=== PATIENT | female | born 1945 | race Caucasian/White ===

== ENCOUNTER 2017-11-19 09:05 | Day surgery (SDC) | payer MEDICARE, OTHER ==
[~2017-11-19] VITALS: Ht 160 cm; Wt 131.1 kg
[~2017-11-19 09:05] MED LIST: ATEN25 PO; CODACE30 PO; DULO30 PO; ESOM20 PO; LEVSOD137 PO; LORA1 PO; MAXIDE; RXLORA1 PO; TRIHYD5075 PO; VERA120ERB PO
[2017-11-19] MEDS ORDERED: SOMA350 MG (09:16)
[2017-11-19] MEDS ORDERED: DULO30 (09:16)
[2017-11-19] MEDS ORDERED: LEVA.63IS (09:17)
[2017-11-19] MEDS ORDERED: ESOM20 (09:17)
== END 2017-11-19 14:00 | disposition home or self-care (01) ==
LOC: ORSCSDS 09:05
PROVIDERS: Orthopaedic Surgery
PROC: 0LQ20ZZ Repair Left Shoulder Tendon, Open Approach (ICD-10-PCS; principal; 2017-11-19 10:30)
PROC: 0RJK4ZZ Inspection of Left Shoulder Joint, Percutaneous Endoscopic Approach (ICD-10-PCS; principal; 2017-11-19 10:30)
DX: M75.122 Complete rotator cuff tear or rupture of left shoulder, not specified as traumatic (principal); M75.42 Impingement syndrome of left shoulder; D68.0 Von Willebrand disease; I10 Essential (primary) hypertension; G47.33 Obstructive sleep apnea (adult) (pediatric); E03.9 Hypothyroidism, unspecified; M79.7 Fibromyalgia; E66.01 Morbid (severe) obesity due to excess calories; Z68.43 Body mass index [BMI] 50.0-59.9, adult; Z79.899 Other long term (current) drug therapy
CPT/HCPCS: J0171; J1100; J1885; J2250; J2370; J2405; J2710; J3010; J3370

== ENCOUNTER → 2018-12-10 | Outpatient (CLI) | payer MEDICARE, OTHER ==
[~2018-12-10] MED LIST changes: +DULO30; +ESOM20; +LEVA.63IS; +SOMA350 MG
[2018-12-11 11:47] LABS: Candida species (DNA Probe) Negative (NEGATIVE); G. vaginalis (DNA Probe) Negative (NEGATIVE); T. vaginalis (DNA Probe) Negative (NEGATIVE)
== END | disposition home or self-care (01) ==
LOC: LAB 15:09 → LAB SHORT 15:09
PROVIDERS: Obstetrics & Gynecology
DX: N76.0 Acute vaginitis (principal)
CPT/HCPCS: 87480; 87510; 87660

== ENCOUNTER 2019-01-01 22:26 | Emergency (ER) | payer MEDICARE, OTHER ==
[~2019-01-01] VITALS: Ht 160 cm; Wt 131.5 kg
[2019-01-01 23:14] LABS: BASOPHILS ABSOLUTE AUTO 0.04 K/mm3 (0.00-0.23); BASOPHILS PERCENT AUTO 0 % (0-2); EOSINOPHILS ABSOLUTE AUTO 0.22 K/mm3 (0.00-0.68); EOSINOPHILS PERCENT AUTO 2 % (0-6); Hematocrit 39.7 % (33.0-51.0); Hemoglobin 12.6 g/dL (11.5-16.0); IMMATURE GRAN ABSOLUTE AUTO 0.05 K/mm3 (0.00-0.10); IMMATURE GRAN PERCENT AUTO 1 % (0-1); LYMPHOCYTES ABSOLUTE AUTO 2.99 K/mm3 (0.84-5.20); LYMPHOCYTES PERCENT AUTO 30 % (21-46); MONOCYTES ABSOLUTE AUTO 0.91 K/mm3 (0.16-1.47); MONOCYTES PERCENT AUTO 9 % (4-13); Mean Corpuscular HGB 27.6 pg (26.0-34.0); Mean Corpuscular HGB Conc 31.7 g/dL (31.5-36.5); Mean Corpuscular Volume 87 fL (80-100); NEUTROPHILS ABSOLUTE AUTO 5.86 K/mm3 (1.96-9.15); NEUTROPHILS PERCENT AUTO 58 % (41-73); Platelet Count 96 K/mm3 (150-400); RDW Coefficient Variation 15.3 % (11.7-14.2); RDW Standard Deviation 48.8 fL (35.1-46.3); Red Blood Cell Count 4.56 M/mm3 (3.80-5.20); White Blood Cell Count 10.07 K/mm3 (4.00-11.30)
[2019-01-01 23:17] LABS: Mean Platelet Volume 13.2 fL (9.1-12.4)
[2019-01-01 23:34] LABS: Alanine Aminotransfer (ALT/SGP 28 U/L (12-78); Albumin, Blood 3.6 g/dL (3.4-5.0); Albumin/Globulin Ratio 0.9 (0.8-1.8); Alk Phos 91 U/L (50-136); Anion Gap 8 mmol/L (6-16); Aspartate Aminotrans (AST/SGOT 14 U/L (12-37); Bilirubin, Total 0.4 mg/dL (0.1-1.0); Blood Urea Nitrogen 16 mg/dL (8-24); Bun/Creatinine Ratio 25.8 (12.0-20.0); CO2, Blood 26 mmol/L (21-32); Calcium, Blood 8.9 mg/dL (8.5-10.1); Chloride, Blood 105 mmol/L (98-108); Creatinine, Blood 0.62 mg/dL (0.40-1.00); Globulin, Blood 4.1 g/dL (2.2-4.0); Glomerular Filtration Rate >60 (60-); Glucose, Blood 110 mg/dL (70-99); Potassium, Blood 3.5 mmol/L (3.5-5.5); Sodium, Blood 139 mmol/L (136-145); Total Protein, Blood 7.7 g/dL (6.4-8.2); Troponin I <0.015 ng/mL (0.000-0.040)
== END 2019-01-02 07:11 | disposition home or self-care (01) ==
LOC: ER 22:26
PROVIDERS: Emergency Medicine
DX: I10 Essential (primary) hypertension (principal); E03.9 Hypothyroidism, unspecified; F41.9 Anxiety disorder, unspecified; D68.0 Von Willebrand disease; M79.7 Fibromyalgia; Z87.891 Personal history of nicotine dependence; Z88.5 Allergy status to narcotic agent; Z88.6 Allergy status to analgesic agent; Z88.8 Allergy status to other drugs, medicaments and biological substances; Z91.010 Allergy to peanuts; Z91.013 Allergy to seafood; Z79.899 Other long term (current) drug therapy
CPT/HCPCS: 71046; 80053; 83690; 84484; 85025; 93005; 93010; 99285-25

== ENCOUNTER 2020-05-04 23:05 | Emergency (ER) | payer MEDICARE, OTHER ==
[~2020-05-04] VITALS: Ht 160 cm; Wt 131.5 kg
[~2020-05-04 23:05] MED LIST changes: +Dyazide 37.5/251 EA PO; -TRIHYD5075 PO
[2020-05-04] MEDS ORDERED: MECL12.5 (23:25)
[2020-05-04] MEDS ORDERED: TRAM50 (23:26)
[2020-05-05 00:05] LABS: BASOPHILS ABSOLUTE AUTO 0.03 K/mm3 (0.00-0.23); BASOPHILS PERCENT AUTO 0 % (0-2); EOSINOPHILS ABSOLUTE AUTO 0.14 K/mm3 (0.00-0.68); EOSINOPHILS PERCENT AUTO 1 % (0-6); Hematocrit 40.4 % (33.0-51.0); Hemoglobin 12.6 g/dL (11.5-16.0); IMMATURE GRAN ABSOLUTE AUTO 0.09 K/mm3 (0.00-0.10); IMMATURE GRAN PERCENT AUTO 1 % (0-1); LYMPHOCYTES ABSOLUTE AUTO 1.53 K/mm3 (0.84-5.20); LYMPHOCYTES PERCENT AUTO 16 % (21-46); MONOCYTES ABSOLUTE AUTO 0.55 K/mm3 (0.16-1.47); MONOCYTES PERCENT AUTO 6 % (4-13); Mean Corpuscular HGB 26.9 pg (26.0-34.0); Mean Corpuscular HGB Conc 31.2 g/dL (31.5-36.5); Mean Corpuscular Volume 86 fL (80-100); NEUTROPHILS ABSOLUTE AUTO 7.52 K/mm3 (1.96-9.15); NEUTROPHILS PERCENT AUTO 76 % (41-73); Platelet Count 91 K/mm3 (150-400); RDW Coefficient Variation 15.1 % (11.7-14.2); RDW Standard Deviation 47.9 fL (35.1-46.3); Red Blood Cell Count 4.69 M/mm3 (3.80-5.20); White Blood Cell Count 9.86 K/mm3 (4.00-11.30)
[2020-05-05 00:07] LABS: Mean Platelet Volume 13.2 fL (9.1-12.4)
[2020-05-05 00:23] LABS: Alanine Aminotransfer (ALT/SGP 27 U/L (12-78); Albumin, Blood 3.6 g/dL (3.4-5.0); Alk Phos 85 U/L (50-136); Anion Gap 7 mmol/L (6-16); Aspartate Aminotrans (AST/SGOT 15 U/L (12-37); Bilirubin, Total 0.4 mg/dL (0.1-1.0); Blood Urea Nitrogen 28 mg/dL (8-24); Bun/Creatinine Ratio 40.1 (12.0-20.0); CO2, Blood 27 mmol/L (21-32); Calcium, Blood 9.1 mg/dL (8.5-10.1); Chloride, Blood 106 mmol/L (98-108); Globulin, Blood 3.7 g/dL (2.2-4.0); Glomerular Filtration Rate >60 (60-); Glucose, Blood 136 mg/dL (70-99); Potassium, Blood 3.3 mmol/L (3.5-5.5); Sodium, Blood 140 mmol/L (136-145); Total Protein, Blood 7.3 g/dL (6.4-8.2); Troponin I <0.015 ng/mL (0.000-0.040)
[2020-05-05] MEDS ORDERED: ATOR80 PO (00:53)
[2020-05-05] MEDS ORDERED: PAROEX473 ML MM (00:54)
[2020-05-05] MEDS ORDERED: Catapres-Tts 11 EACH TOP (00:55)
[2020-05-05] MEDS ORDERED: FLUO10 PO (00:56)
[2020-05-05] MEDS ORDERED: Voltaren100 GM TOP (00:56)
[2020-05-05] MEDS ORDERED: FOLI1 PO (00:56)
[2020-05-05] MEDS ORDERED: HYDPAM50 PO (00:57)
[2020-05-05] MEDS ORDERED: GABA400 PO (00:57)
[2020-05-05] MEDS ORDERED: LIDO700A20 TOP (00:58)
[2020-05-05] MEDS ORDERED: Xylocaine5 M1 EXT (01:01)
[2020-05-05] MEDS ORDERED: MESALAMINE800 MG PO (01:04)
[2020-05-05] MEDS ORDERED: PYRI100 PO (01:05)
[2020-05-05] MEDS ORDERED: CENTRUM SILVER1 EAC2 PO (01:05)
[2020-05-05] MEDS ORDERED: Seroquel Xr50 MG PO (01:05)
[2020-05-05] MEDS ORDERED: TERB250 PO (01:06)
[2020-05-05] MEDS ORDERED: Vitamin B-150 MG PO (01:06)
[2020-05-05] MEDS ORDERED: SYNTHROID137 MCG (01:14)
[2020-05-05] MEDS ORDERED: TRIA50 PO (01:15)
[2020-05-05] MEDS ORDERED: Nexium40 MG PO (01:16)
[2020-05-05] MEDS ORDERED: VERA120ERB PO (01:16)
[2020-05-05] MEDS ORDERED: ATEN25 PO (01:16)
[2020-05-05] MEDS ORDERED: Ativan1 MG PO (01:17)
== END 2020-05-05 02:16 | disposition home or self-care (01) ==
LOC: ER 23:05
PROVIDERS: Emergency Medicine
DX: I10 Essential (primary) hypertension (principal); Z88.6 Allergy status to analgesic agent; Z91.013 Allergy to seafood; Z91.018 Allergy to other foods; Z88.8 Allergy status to other drugs, medicaments and biological substances; Z91.09 Other allergy status, other than to drugs and biological substances; Z79.899 Other long term (current) drug therapy; E03.9 Hypothyroidism, unspecified; F41.9 Anxiety disorder, unspecified; Z87.891 Personal history of nicotine dependence
CPT/HCPCS: 36415; 71045; 80053; 84484; 85025; 93005; 93010; 96374; 96375; 96376; 99284-25; J2405

== ENCOUNTER → 2021-06-06 | Outpatient (CLI) | payer MEDICARE ==
[~2021-06-06] MED LIST changes: +ATOR80 PO; +Ativan1 MG PO; +CENTRUM SILVER1 EAC2 PO; +Catapres-Tts 11 EACH TOP; +FLUO10 PO; +FOLI1 PO; +GABA400 PO; +HYDPAM50 PO; +LIDO700A20 TOP; +MECL12.5; +MESALAMINE800 MG PO; +Nexium40 MG PO; +PAROEX473 ML MM; +PYRI100 PO; +SYNTHROID137 MCG; +Seroquel Xr50 MG PO; +TERB250 PO; +TRAM50; +TRIA50 PO; +Vitamin B-150 MG PO; +Voltaren100 GM TOP; +Xylocaine5 M1 EXT
[2021-06-06 07:54] LABS: Source, Urine Clean Catch
[2021-06-06 10:38] LABS: Appearance, Urine Clear (Clear); Bilirubin, Urine Neg (Neg); Blood, Urine Neg (Neg); Color, Urine Yellow (P-Yellow); Glucose Qualitative, Urine Neg (Neg); Ketones, Urine Neg (Neg); Leukocyte Esterase, Urine Neg (Neg); Nitrite, Urine Neg (Neg); Protein, Urine Neg (Neg); Urobilinogen, Urine NORM (Normal)
== END | disposition home or self-care (01) ==
LOC: LAB 07:53 → LAB SHORT 07:53 → LAB FUT 06-03 08:55
PROVIDERS: Internal Medicine
DX: R82.90 Unspecified abnormal findings in urine (principal)
CPT/HCPCS: 81003

== ENCOUNTER → 2022-02-23 | Outpatient (CLI) | payer MEDICARE ==
[2022-02-23 09:42] LABS: BASOPHILS ABSOLUTE AUTO 0.05 K/mm3 (0.00-0.23); BASOPHILS PERCENT AUTO 1 % (0-2); EOSINOPHILS ABSOLUTE AUTO 0.22 K/mm3 (0.00-0.68); EOSINOPHILS PERCENT AUTO 3 % (0-6); Hematocrit 40.4 % (33.0-51.0); Hemoglobin 13.4 g/dL (11.5-16.0); IMMATURE GRAN ABSOLUTE AUTO 0.08 K/mm3 (0.00-0.10); IMMATURE GRAN PERCENT AUTO 1 % (0-1); LYMPHOCYTES ABSOLUTE AUTO 1.81 K/mm3 (0.84-5.20); LYMPHOCYTES PERCENT AUTO 22 % (21-46); MONOCYTES ABSOLUTE AUTO 0.59 K/mm3 (0.16-1.47); MONOCYTES PERCENT AUTO 7 % (4-13); Mean Corpuscular HGB 28.3 pg (26.0-34.0); Mean Corpuscular HGB Conc 33.2 g/dL (31.5-36.5); Mean Corpuscular Volume 85 fL (80-100); Mean Platelet Volume 12.8 fL (9.1-12.4); NEUTROPHILS ABSOLUTE AUTO 5.68 K/mm3 (1.96-9.15); NEUTROPHILS PERCENT AUTO 67 % (41-73); Platelet Count 112 K/mm3 (150-400); RDW Coefficient Variation 15.1 % (11.7-14.2); RDW Standard Deviation 46.9 fL (35.1-46.3); Red Blood Cell Count 4.74 M/mm3 (3.80-5.20); White Blood Cell Count 8.43 K/mm3 (4.00-11.30)
[2022-02-23 09:48] LABS: Albumin, Blood 3.8 g/dL (3.4-5.0); Bilirubin, Total 0.4 mg/dL (0.1-1.0); Calcium, Blood 9.7 mg/dL (8.5-10.1); Creatinine, Blood 0.82 mg/dL (0.40-1.00); Globulin, Blood 3.9 g/dL (2.2-4.0); Potassium, Blood 3.6 mmol/L (3.5-5.5); Total Protein, Blood 7.7 g/dL (6.4-8.2)
== END | disposition home or self-care (01) ==
LOC: LAB 09:32 → LAB SHORT 09:32
PROVIDERS: General Practice
DX: R10.32 Left lower quadrant pain (principal)
CPT/HCPCS: 80053; 85025

== ENCOUNTER → 2023-01-05 | Outpatient (CLI) | payer MEDICARE ==
[2023-01-10 14:09] LABS: Stool Occult Blood Guaiac 1 Neg (Neg)
[2023-01-10 14:10] LABS: Stool Occult Blood Guaiac 2 Neg (Neg); Stool Occult Blood Guaiac 3 Neg (Neg)
== END | disposition home or self-care (01) ==
LOC: LAB SHORT 11:30 → LAB 11:30
PROVIDERS: Internal Medicine
DX: D64.9 Anemia, unspecified (principal)
CPT/HCPCS: 82270

== ENCOUNTER 2023-02-20 12:37 | Inpatient (IN) | payer MEDICARE ==
[~2023-02-20] VITALS: Ht 162.6 cm; Wt 139.5 kg
[~2023-02-20 12:37] MED LIST changes: -SYNTHROID137 MCG; +SYNTHROID137 MCG PO
[2023-02-20 13:51] LABS: Hematocrit 31.2 % (33.0-51.0); Hemoglobin 9.9 g/dL (11.5-16.0); IMMATURE GRAN ABSOLUTE AUTO 0.65 K/mm3 (0.00-0.10); IMMATURE GRAN PERCENT AUTO 6 % (0-1); Mean Corpuscular HGB 27.8 pg (26.0-34.0); Mean Corpuscular HGB Conc 31.7 g/dL (31.5-36.5); Mean Corpuscular Volume 88 fL (80-100); Platelet Count 65 K/mm3 (150-400); RDW Coefficient Variation 20.8 % (11.7-14.2); RDW Standard Deviation 65.3 fL (35.1-46.3); Red Blood Cell Count 3.56 M/mm3 (3.80-5.20); White Blood Cell Count 11.11 K/mm3 (4.00-11.30)
[2023-02-20 13:55] LABS: Albumin, Blood 3.7 g/dL (3.4-5.0); Bilirubin, Total 0.4 mg/dL (0.1-1.0); Bun/Creatinine Ratio 28.6 (12.0-20.0); Calcium, Blood 9.8 mg/dL (8.5-10.1); Creatinine, Blood 0.7 mg/dL (0.40-1.00); Globulin, Blood 3.6 g/dL (2.2-4.0); Potassium, Blood 4.1 mmol/L (3.5-5.5); Total Protein, Blood 7.3 g/dL (6.4-8.2)
[2023-02-20 14:16] LABS: BAND PERCENT MAN 4 % (0-8); BASOPHILS PERCENT MAN 1 % (0-2); EOSINOPHILS PERCENT MAN 7 % (0-6); LYMPHOCYTES PERCENT MAN 22 % (21-46); MONOCYTES PERCENT MAN 6 % (4-13); SEG NEUTROPHILS PERCENT MAN 60 % (41-73); TOTAL CELLS COUNTED 100
[2023-02-20 19:03] LABS: International Normalized Ratio 0.98; Prothrombin Time Results 10.3 Sec (9.7-11.5)
[2023-02-20] MEDS ORDERED: ESCITALOPRAM OXA5 MG PO (19:24)
[2023-02-20] MEDS ORDERED: GABA300 PO (19:25)
[2023-02-20] MEDS ORDERED: DYAZIDE 37.5-21 EACH PO (19:25)
[2023-02-20] MEDS ORDERED: ALBU90OI INH (19:25)
[2023-02-20] MEDS ORDERED: BUDESONIDE-FO10.2 G3 INH (19:26)
[2023-02-20 20:34] VITALS: BP 167/81
--- NOTE | 2023-02-21 01:17 | NUR ---
ADMIT NOTE/SHIFT SUMMARY CALLED ER FOR REPORT AT 1937, GIVEN REPORT FROM SAHR ABDUL. PT BROUGHT TO RM 335 AROUND 2009. PT ASSISTED INTO BED. PT UNABLE TO TOLERATE SLEEPING IN THE BED AT THIS TIME DUE TO NECK AND BACK PAIN. PT GIVEN TYLENOL. PT STS THAT SHE IS COLD AND ANXIOUS. SPOKE TO DR DUBON AND WAS ABLE TO GET LORAZEPAM ORDERED FOR HER. PT GIVEN MEDICATION AND HAS BEEN ABLE TO SLEEP OFF AND ON. PT STS THAT SHE FEELS BETTER. PT ON PROTONIX DRIP AT 10 ML/HR. ORIGINAL IV WAS IN AC AND CONTINUALLY SHUT THE IV PUMP OFF. THAT IV REMOVED AND A NEW ONE WAS PLACED IN LOWER R FOREARM.
[2023-02-21 04:00] VITALS: BP 165/68
[2023-02-21 06:41] LABS: Hemoglobin 8.8 g/dL (11.5-16.0); Mean Corpuscular HGB Conc 31.4 g/dL (31.5-36.5); Mean Corpuscular Volume 89 fL (80-100); RDW Coefficient Variation 20.9 % (11.7-14.2); RDW Standard Deviation 67.4 fL (35.1-46.3); Red Blood Cell Count 3.14 M/mm3 (3.80-5.20); White Blood Cell Count 8.58 K/mm3 (4.00-11.30)
[2023-02-21 07:00] LABS: Platelet Count 47 K/mm3 (150-400)
[2023-02-21 07:03] LABS: Albumin, Blood 3.2 g/dL (3.4-5.0); Bilirubin, Total 0.6 mg/dL (0.1-1.0); Calcium, Blood 9.2 mg/dL (8.5-10.1); Creatinine, Blood 0.75 mg/dL (0.40-1.00); Globulin, Blood 3.3 g/dL (2.2-4.0); Potassium, Blood 3.5 mmol/L (3.5-5.5); Total Protein, Blood 6.5 g/dL (6.4-8.2)
[2023-02-21 07:17] LABS: BAND PERCENT MAN 2 % (0-8); BASOPHILS PERCENT MAN 0 % (0-2); EOSINOPHILS ABSOLUTE MAN 0.42 K/mm3 (0.00-0.68); EOSINOPHILS PERCENT MAN 5 % (0-6); LYMPHOCYTES ABSOLUTE MAN 1.37 K/mm3 (0.84-5.20); LYMPHOCYTES PERCENT MAN 16 % (21-46); METAMYELOCYTE ABSOLUTE MAN 0.08 K/mm3 (0.00-0.00); METAMYELOCYTE PERCENT MAN 1 % (0-0); MONOCYTES PERCENT MAN 7 % (4-13); MYELOCYTE ABSOLUTE MAN 0.08 K/mm3 (0.00-0.00); MYELOCYTE PERCENT MAN 1 % (0-0); SEG NEUTROPHILS PERCENT MAN 68 % (41-73); TOTAL CELLS COUNTED 100
[2023-02-21 07:53] VITALS: BP 136/56
[2023-02-21 15:51] VITALS: BP 131/63
[2023-02-21 16:10] LABS: Hematocrit 30.3 % (33.0-51.0); Hemoglobin 9.3 g/dL (11.5-16.0)
--- NOTE | 2023-02-21 18:37 | NUR ---
SUMMARY- PT AAOX4. APPROPRIATE. SBA. PT HAD 2 BM'S TODAY. PER PT, THE FIRST ONE WAS "BLACK-BROWN" AND THE SECOND WAS BROWN. NO OTHER SIGNS/SYMPTOMS OF BLEEDING.
[2023-02-21 19:36] VITALS: BP 154/73
[2023-02-22 02:41] VITALS: BP 129/80
[2023-02-22 06:11] LABS: Hematocrit 30.2 % (33.0-51.0); Hemoglobin 9.4 g/dL (11.5-16.0); Mean Corpuscular HGB 27.9 pg (26.0-34.0); Mean Corpuscular HGB Conc 31.1 g/dL (31.5-36.5); Mean Corpuscular Volume 90 fL (80-100); RDW Coefficient Variation 20.9 % (11.7-14.2); RDW Standard Deviation 68.4 fL (35.1-46.3); Red Blood Cell Count 3.37 M/mm3 (3.80-5.20); White Blood Cell Count 10.39 K/mm3 (4.00-11.30)
[2023-02-22 06:22] LABS: Platelet Count 48 K/mm3 (150-400)
[2023-02-22 06:29] LABS: Bun/Creatinine Ratio 25.1 (12.0-20.0); Calcium, Blood 9.3 mg/dL (8.5-10.1); Creatinine, Blood 0.8 mg/dL (0.40-1.00); Potassium, Blood 3.6 mmol/L (3.5-5.5)
--- NOTE | 2023-02-22 06:36 | NUR ---
SHIFT SUMMARY: A&O X 4, ABLE TO MAKE NEEDS KNOWN. USES CALL LIGHT APPROPRIATELY. NO COMPLAINTS OF CHEST PAIN OR DISCOMFORT. SHE IS PLANNING ON DISCHARGING TODAY. SHE HAS NOT HAD A DARK STOOL SINCE YESTERDAY MORNING. SHE DOES HAVE PLANS TO RECEIVE HER HUMAT-P THERAPY TODAY PRIOR TO DISCHARGING. CALL LIGHT WITHIN REACH.
[2023-02-22 07:45] VITALS: BP 123/56
[2023-02-22 14:50] LABS: Hematocrit 32.6 % (33.0-51.0); Hemoglobin 10.1 g/dL (11.5-16.0)
[2023-02-22 15:34] VITALS: BP 129/72
--- NOTE | 2023-02-22 18:53 | NUR ---
LATE ENTRY 1400 PT DISCHARGED HOME. FAMILY AT BEDSIDE. DISCHARGE INSTRUCTIONS DISCUSSED WITH PT. NO QUESTIONS AT THIS TIME. ALERT AND ORIENTED X4, INDEPENDENT, R/A.
[2023-02-23 00:10] LABS: FACTOR VIII ACTIVITY 130 % (56-140); INTERPRETATION Note (.); VON WILLEBRAND FACTOR (VWF) AG 135 % (50-200); VWF ACTIVITY 51 % (50-200)
== END 2023-02-22 16:19 | disposition home or self-care (01) | DRG 378 ==
LOC: ER 12:37 → MEDS 19:26
PROVIDERS: Family Medicine; Internal Medicine; Physician Assistant; Student in an Organized Health Care Education/Training Program; ADMIT Student in an Organized Health Care Education/Training Program
DX: K92.1 Melena (principal); D62 Acute posthemorrhagic anemia; D68.021 Von Willebrand disease, type 2B; Z68.43 Body mass index [BMI] 50.0-59.9, adult; Z66 Do not resuscitate; I10 Essential (primary) hypertension; E03.9 Hypothyroidism, unspecified; F41.9 Anxiety disorder, unspecified; H83.09 Labyrinthitis, unspecified ear; E11.9 Type 2 diabetes mellitus without complications; E78.5 Hyperlipidemia, unspecified; M85.80 Other specified disorders of bone density and structure, unspecified site; E66.9 Obesity, unspecified; K21.9 Gastro-esophageal reflux disease without esophagitis; M79.7 Fibromyalgia; Z91.013 Allergy to seafood; Z91.010 Allergy to peanuts; Z91.018 Allergy to other foods; Z90.49 Acquired absence of other specified parts of digestive tract; Z90.89 Acquired absence of other organs; Z98.890 Other specified postprocedural states; Z96.612 Presence of left artificial shoulder joint; Z87.891 Personal history of nicotine dependence; Z88.8 Allergy status to other drugs, medicaments and biological substances; Z79.890 Hormone replacement therapy; Z79.899 Other long term (current) drug therapy
CPT/HCPCS: 36415; 80048; 80053; 82272; 85014; 85018; 85025; 85027; 85240; 85245; 85246; 85610; 85730; 86850; 86900; 86901; 94640; 94664; 94760; 94762; 96365; 96366; 99285-25; A9270; C9113; J7187

== ENCOUNTER → 2023-02-28 | Outpatient (CLI) | payer MEDICARE ==
[~2023-02-28] MED LIST changes: +ALBU90OI INH; +BUDESONIDE-FO10.2 G3 INH; +DYAZIDE 37.5-21 EACH PO; +ESCITALOPRAM OXA5 MG PO; +GABA300 PO
[2023-02-28 15:42] LABS: Hematocrit 25.6 % (33.0-51.0); Hemoglobin 7.9 g/dL (11.5-16.0); Mean Corpuscular HGB 28.5 pg (26.0-34.0); Mean Corpuscular HGB Conc 30.9 g/dL (31.5-36.5); Mean Corpuscular Volume 92 fL (80-100); Platelet Count 61 K/mm3 (150-400); RDW Coefficient Variation 20.8 % (11.7-14.2); RDW Standard Deviation 68.8 fL (35.1-46.3); Red Blood Cell Count 2.77 M/mm3 (3.80-5.20); White Blood Cell Count 11.18 K/mm3 (4.00-11.30)
[2023-02-28 16:03] LABS: BASOPHILS PERCENT MAN 0 % (0-2); EOSINOPHILS ABSOLUTE MAN 0.22 K/mm3 (0.00-0.68); EOSINOPHILS PERCENT MAN 2 % (0-6); LYMPHOCYTES ABSOLUTE MAN 2.34 K/mm3 (0.84-5.20); LYMPHOCYTES PERCENT MAN 21 % (21-46); MONOCYTES ABSOLUTE MAN 0.67 K/mm3 (0.16-1.47); MONOCYTES PERCENT MAN 6 % (4-13); MYELOCYTE ABSOLUTE MAN 0.44 K/mm3 (0.00-0.00); MYELOCYTE PERCENT MAN 4 % (0-0); NEUTROPHILS ABSOLUTE MAN 7.49 K/mm3 (1.96-9.15); SEG NEUTROPHILS PERCENT MAN 67 % (41-73); TOTAL CELLS COUNTED 100
== END | disposition home or self-care (01) ==
LOC: LAB SHORT 15:05 → LAB 15:05
PROVIDERS: Nurse Practitioner
DX: D68.00 Von Willebrand disease, unspecified (principal); D69.6 Thrombocytopenia, unspecified
CPT/HCPCS: 85025

== ENCOUNTER 2023-03-02 02:44 | Day surgery (SDC) | payer MEDICARE ==
[2023-03-02 15:38] VITALS: BP 97/47
[2023-03-02 15:56] VITALS: BP 115/59
[2023-03-02 16:56] VITALS: BP 121/50
[2023-03-02 17:10] VITALS: BP 128/55
== END 2023-03-02 17:21 | disposition home or self-care (01) ==
LOC: ATC 02:44
DX: D50.9 Iron deficiency anemia, unspecified (principal); D68.021 Von Willebrand disease, type 2B; I10 Essential (primary) hypertension; E11.9 Type 2 diabetes mellitus without complications; E03.9 Hypothyroidism, unspecified; E78.5 Hyperlipidemia, unspecified; K21.9 Gastro-esophageal reflux disease without esophagitis; Z87.891 Personal history of nicotine dependence; Z88.8 Allergy status to other drugs, medicaments and biological substances; Z79.899 Other long term (current) drug therapy
CPT/HCPCS: 36415; 86850; 86900; 86901; 86922; J7050; P9016

== ENCOUNTER 2023-03-05 16:55 | Inpatient (IN) | payer MEDICARE ==
[2023-03-05] VITALS (11 sets, daily range): BP systolic 109–149; BP diastolic 54–84
[~2023-03-05] VITALS: Ht 160 cm; Wt 138.0 kg
[2023-03-05 17:54] LABS: BASOPHILS ABSOLUTE AUTO 0.11 K/mm3 (0.00-0.23); BASOPHILS PERCENT AUTO 1 % (0-2); EOSINOPHILS ABSOLUTE AUTO 0.46 K/mm3 (0.00-0.68); EOSINOPHILS PERCENT AUTO 2 % (0-6); Hematocrit 18.5 % (33.0-51.0); IMMATURE GRAN ABSOLUTE AUTO 0.93 K/mm3 (0.00-0.10); IMMATURE GRAN PERCENT AUTO 4 % (0-1); LYMPHOCYTES PERCENT AUTO 12 % (21-46); MONOCYTES ABSOLUTE AUTO 1.69 K/mm3 (0.16-1.47); MONOCYTES PERCENT AUTO 8 % (4-13); Mean Corpuscular HGB 29.1 pg (26.0-34.0); Mean Corpuscular HGB Conc 30.8 g/dL (31.5-36.5); Mean Corpuscular Volume 94 fL (80-100); NEUTROPHILS ABSOLUTE AUTO 15.31 K/mm3 (1.96-9.15); NEUTROPHILS PERCENT AUTO 73 % (41-73); NRBC ABSOLUTE 0.09 K/mm3 (0.00-0.02); NRBC Auto 0.4 /100 WBC (0.0-0.2); RDW Coefficient Variation 21.4 % (11.7-14.2); Red Blood Cell Count 1.96 M/mm3 (3.80-5.20)
[2023-03-05 17:57] LABS: Hemoglobin 5.7 g/dL (11.5-16.0)
[2023-03-05 17:58] LABS: Albumin, Blood 3.1 g/dL (3.4-5.0); Albumin/Globulin Ratio 0.9 (0.8-1.8); Bilirubin, Total 0.2 mg/dL (0.1-1.0); Bun/Creatinine Ratio 40.5 (12.0-20.0); Calcium, Blood 9.3 mg/dL (8.5-10.1); Creatinine, Blood 0.74 mg/dL (0.40-1.00); Globulin, Blood 3.3 g/dL (2.2-4.0); Potassium, Blood 3.3 mmol/L (3.5-5.5); Total Protein, Blood 6.4 g/dL (6.4-8.2)
[2023-03-05 18:24] LABS: Platelet Count 35 K/mm3 (150-400)
[2023-03-05 18:44] LABS: International Normalized Ratio 0.98; Prothrombin Time Results 10.3 Sec (9.7-11.5)
[2023-03-05 23:06] LABS: Source, Urine Clean Catch
[2023-03-05 23:13] LABS: Appearance, Urine Clear (Clear); Bilirubin, Urine Neg (Neg); Blood, Urine Neg (Neg); Color, Urine Yellow (P-Yellow); Glucose Qualitative, Urine Neg (Neg); Ketones, Urine Neg (Neg); Leukocyte Esterase, Urine Neg (Neg); Nitrite, Urine Neg (Neg); Protein, Urine Neg (Neg); Urobilinogen, Urine NORM (Normal)
[2023-03-05] MEDS ORDERED: GABA300 PO (23:19)
[2023-03-05] MEDS ORDERED: MECL12.5 PO (23:25)
[2023-03-06] VITALS (16 sets, daily range): BP systolic 132–165; BP diastolic 53–79
--- NOTE | 2023-03-06 01:36 | NUR ---
PT COMPLAINING OF ITCHING AND LEFT EYE SWELLEN AND RED AFTER PLATELETS INFUSING FOR APPROXIMATELY AN HOUR. PLATELETS STOPPED. DR. NAIK NOTIFIED, RECEIVED ORDER FOR IV BENADRYL. BLOOD BANK INFORMED OF REACTION. PLATELETS, TUBING, AND BAG OF SALINE DELIVER TO BLOOD BANK. LABS DRAWN THAT WERE REQUESTED BY BLOOD BANK. DISCUSSED WITH DR. CAZARES IF SECOND UNIT PRBC'S SHOULDER BE GIVEN, INSTRUCTED TO INFUSE AND MONITOR FOR REACTION.
--- NOTE | 2023-03-06 03:14 | NUR ---
PT HAS BED AT [facility]. INFORMED BY BLOOD BANK UNABLE TO TRANSFUSE UNTIL WORK UP COMPLETE ON REACTION. SPOKE WITH DR. NAIK, INFORMED PT TO BE LEAVING SOON, UNABLE TO TRANSFUSE SECOND UNIT PRBC'S UNTIL WORK UP COMPLETE. STATES CAN HOLD SECOND UNIT OF PRBC'S AT THIS TIME.
--- NOTE | 2023-03-06 03:31 | NUR ---
REPORT CALLED TO ROBIN LUO RN AT [facility].
== END 2023-03-06 04:00 | disposition short-term general hospital (02) | DRG 812 ==
LOC: ER 16:55 → PCU 19:52
PROVIDERS: Nurse Practitioner Acute Care; Physician Assistant; ADMIT Internal Medicine
PROC: 30233R1 Transfusion of Nonautologous Platelets into Peripheral Vein, Percutaneous Approach (ICD-10-PCS; principal; 2023-03-05)
PROC: 30233N1 Transfusion of Nonautologous Red Blood Cells into Peripheral Vein, Percutaneous Approach (ICD-10-PCS; 2023-03-05)
DX: D62 Acute posthemorrhagic anemia (principal); D68.00 Von Willebrand disease, unspecified; K92.1 Melena; Z66 Do not resuscitate; D50.9 Iron deficiency anemia, unspecified; E03.9 Hypothyroidism, unspecified; F41.9 Anxiety disorder, unspecified; I10 Essential (primary) hypertension; D69.6 Thrombocytopenia, unspecified; E87.6 Hypokalemia; R79.89 Other specified abnormal findings of blood chemistry; D72.829 Elevated white blood cell count, unspecified; H83.09 Labyrinthitis, unspecified ear; Z91.010 Allergy to peanuts; Z91.018 Allergy to other foods; Z79.890 Hormone replacement therapy; Z91.048 Other nonmedicinal substance allergy status; Z90.49 Acquired absence of other specified parts of digestive tract; Z88.8 Allergy status to other drugs, medicaments and biological substances; Z91.013 Allergy to seafood; Z98.890 Other specified postprocedural states; Z87.891 Personal history of nicotine dependence; Z79.899 Other long term (current) drug therapy
CPT/HCPCS: 36415; 36430; 71045; 80053; 81003; 85025; 85610; 86850; 86900; 86901; 86902; 86922; 93005; 93010; 94640; 94664; 94762; 96374; 99285-25; A9270; C9113; J1200; J7030; P9016; P9035

== ENCOUNTER 2023-05-28 16:04 | Emergency (ER) | payer MEDICARE ==
[~2023-05-28] VITALS: Ht 160 cm; Wt 128.8 kg
[~2023-05-28 16:04] MED LIST changes: +MECL12.5 PO
[2023-05-28 16:30] VITALS: BP 152/85
[2023-05-28] MEDS ORDERED: Ativan1 MG PO (16:38)
[2023-05-28] MEDS ORDERED: ACETAMI (16:41)
[2023-05-28] MEDS ORDERED: CODEIN (16:41)
[2023-05-28] MEDS ORDERED: ESCITALOPRAM OXA5 MG PO (16:41)
[2023-05-28 16:43] LABS: BASOPHILS ABSOLUTE AUTO 0.07 K/mm3 (0.00-0.23); BASOPHILS PERCENT AUTO 1 % (0-2); EOSINOPHILS ABSOLUTE AUTO 1.59 K/mm3 (0.00-0.68); EOSINOPHILS PERCENT AUTO 14 % (0-6); Hematocrit 38.4 % (33.0-51.0); Hemoglobin 12.3 g/dL (11.5-16.0); IMMATURE GRAN ABSOLUTE AUTO 0.35 K/mm3 (0.00-0.10); IMMATURE GRAN PERCENT AUTO 3 % (0-1); LYMPHOCYTES ABSOLUTE AUTO 1.41 K/mm3 (0.84-5.20); LYMPHOCYTES PERCENT AUTO 12 % (21-46); MONOCYTES PERCENT AUTO 6 % (4-13); Mean Corpuscular HGB 27.9 pg (26.0-34.0); Mean Corpuscular Volume 87 fL (80-100); NEUTROPHILS ABSOLUTE AUTO 7.54 K/mm3 (1.96-9.15); NEUTROPHILS PERCENT AUTO 65 % (41-73); Platelet Count 65 K/mm3 (150-400); RDW Coefficient Variation 14.6 % (11.7-14.2); RDW Standard Deviation 46.6 fL (35.1-46.3); Red Blood Cell Count 4.41 M/mm3 (3.80-5.20); White Blood Cell Count 11.66 K/mm3 (4.00-11.30)
[2023-05-28] MEDS ORDERED: Carisoprodol350 MG (16:43)
[2023-05-28 16:58] LABS: Albumin, Blood 3.5 g/dL (3.4-5.0); Albumin/Globulin Ratio 0.9 (0.8-1.8); Bilirubin, Total 0.3 mg/dL (0.1-1.0); Bun/Creatinine Ratio 27.7 (12.0-20.0); Creatinine, Blood 0.72 mg/dL (0.40-1.00); Globulin, Blood 3.9 g/dL (2.2-4.0); Potassium, Blood 3.7 mmol/L (3.5-5.5); Total Protein, Blood 7.4 g/dL (6.4-8.2)
== END 2023-05-28 20:27 | disposition home or self-care (01) ==
LOC: ER 16:04
PROVIDERS: Emergency Medicine
DX: J44.1 Chronic obstructive pulmonary disease with (acute) exacerbation (principal); E03.9 Hypothyroidism, unspecified; I10 Essential (primary) hypertension; Z88.6 Allergy status to analgesic agent; Z88.8 Allergy status to other drugs, medicaments and biological substances; Z91.018 Allergy to other foods; Z88.1 Allergy status to other antibiotic agents; Z91.030 Bee allergy status; Z91.010 Allergy to peanuts; Z91.013 Allergy to seafood; Z79.51 Long term (current) use of inhaled steroids; Z79.899 Other long term (current) drug therapy; Z87.891 Personal history of nicotine dependence
CPT/HCPCS: 71046; 80053; 83880; 84484; 85025; 85379; 93005; 93010; 94761; 99284-25

== ENCOUNTER 2023-06-03 19:08 | Emergency (ER) | payer MEDICARE ==
[~2023-06-03] VITALS: Ht 165.1 cm; Wt 108.9 kg
[~2023-06-03 19:08] MED LIST changes: +ACETAMI; +CODEIN; +Carisoprodol350 MG
[2023-06-03 19:55] LABS: BASOPHILS ABSOLUTE AUTO 0.09 K/mm3 (0.00-0.23); BASOPHILS PERCENT AUTO 1 % (0-2); EOSINOPHILS ABSOLUTE AUTO 1.43 K/mm3 (0.00-0.68); EOSINOPHILS PERCENT AUTO 13 % (0-6); Hemoglobin 12.9 g/dL (11.5-16.0); IMMATURE GRAN ABSOLUTE AUTO 0.22 K/mm3 (0.00-0.10); IMMATURE GRAN PERCENT AUTO 2 % (0-1); LYMPHOCYTES ABSOLUTE AUTO 2.26 K/mm3 (0.84-5.20); LYMPHOCYTES PERCENT AUTO 21 % (21-46); MONOCYTES ABSOLUTE AUTO 0.78 K/mm3 (0.16-1.47); MONOCYTES PERCENT AUTO 7 % (4-13); Mean Corpuscular HGB 27.9 pg (26.0-34.0); Mean Corpuscular HGB Conc 32.3 g/dL (31.5-36.5); Mean Corpuscular Volume 87 fL (80-100); NEUTROPHILS ABSOLUTE AUTO 6.21 K/mm3 (1.96-9.15); NEUTROPHILS PERCENT AUTO 57 % (41-73); Platelet Count 63 K/mm3 (150-400); RDW Coefficient Variation 14.7 % (11.7-14.2); RDW Standard Deviation 47.1 fL (35.1-46.3); Red Blood Cell Count 4.62 M/mm3 (3.80-5.20); White Blood Cell Count 10.99 K/mm3 (4.00-11.30)
[2023-06-03 20:12] LABS: Albumin, Blood 3.6 g/dL (3.4-5.0); Albumin/Globulin Ratio 0.9 (0.8-1.8); Bilirubin, Total 0.5 mg/dL (0.1-1.0); Bun/Creatinine Ratio 21.5 (12.0-20.0); Calcium, Blood 10.1 mg/dL (8.5-10.1); Creatinine, Blood 0.79 mg/dL (0.40-1.00); Globulin, Blood 4.2 g/dL (2.2-4.0); Potassium, Blood 3.9 mmol/L (3.5-5.5); Total Protein, Blood 7.8 g/dL (6.4-8.2)
[2023-06-03] MEDS ORDERED: AMOCLA875 PO (21:42)
[2023-06-03] MEDS ORDERED: PRED20 PO (21:42)
[2023-06-03 21:45] VITALS: BP 124/71
== END 2023-06-03 22:30 | disposition home or self-care (01) ==
LOC: ER 19:08
PROVIDERS: Emergency Medicine
DX: J18.9 Pneumonia, unspecified organism (principal); J98.01 Acute bronchospasm; I10 Essential (primary) hypertension; E03.9 Hypothyroidism, unspecified; Z88.6 Allergy status to analgesic agent; Z88.5 Allergy status to narcotic agent; Z91.018 Allergy to other foods; Z88.8 Allergy status to other drugs, medicaments and biological substances; Z91.013 Allergy to seafood; Z91.048 Other nonmedicinal substance allergy status; Z79.51 Long term (current) use of inhaled steroids; Z79.899 Other long term (current) drug therapy; Z87.891 Personal history of nicotine dependence
CPT/HCPCS: 71045; 80053; 83880; 85025; 93005; 93010; 94644; 94664; 96374; 99285-25; A9270; J2930

== ENCOUNTER 2023-07-02 12:42 | Emergency (ER) | payer MEDICARE ==
[~2023-07-02] VITALS: Ht 160 cm; Wt 122.9 kg
[~2023-07-02 12:42] MED LIST changes: +AMOCLA875 PO; +PRED20 PO
[2023-07-02] MEDS ORDERED: PRED20 PO (15:20)
[2023-07-02] MEDS ORDERED: Prednisone20 MG PO (15:20)
[2023-07-02] MEDS ORDERED: LEVO750 PO (15:20)
[2023-07-02] MEDS ORDERED: Deltasone 10 mg10 MG PO (15:20)
[2023-07-02 15:51] VITALS: BP 145/62
== END 2023-07-02 15:56 | disposition home or self-care (01) ==
LOC: ER 12:42
DX: J44.1 Chronic obstructive pulmonary disease with (acute) exacerbation (principal); J18.9 Pneumonia, unspecified organism; E03.9 Hypothyroidism, unspecified; I10 Essential (primary) hypertension; Z99.81 Dependence on supplemental oxygen; Z88.6 Allergy status to analgesic agent; Z91.018 Allergy to other foods; Z88.5 Allergy status to narcotic agent; Z88.1 Allergy status to other antibiotic agents; Z88.8 Allergy status to other drugs, medicaments and biological substances; Z91.010 Allergy to peanuts; Z91.013 Allergy to seafood; Z79.890 Hormone replacement therapy; Z79.899 Other long term (current) drug therapy; Z79.52 Long term (current) use of systemic steroids; Z87.891 Personal history of nicotine dependence
CPT/HCPCS: 71045; 94640; 94644; 94664; 99285-25; J7512

== ENCOUNTER 2023-08-31 14:36 | Emergency (ER) | payer MEDICARE ==
[~2023-08-31] VITALS: Ht 160 cm; Wt 120.7 kg
[~2023-08-31 14:36] MED LIST changes: +Deltasone 10 mg10 MG PO; +LEVO750 PO; +Prednisone20 MG PO
[2023-08-31 15:14] LABS: Hematocrit 40.5 % (33.0-51.0); Hemoglobin 13.1 g/dL (11.5-16.0); Mean Corpuscular HGB 27.6 pg (26.0-34.0); Mean Corpuscular HGB Conc 32.3 g/dL (31.5-36.5); Mean Corpuscular Volume 85 fL (80-100); Platelet Count 76 K/mm3 (150-400); RDW Coefficient Variation 18.5 % (11.7-14.2); RDW Standard Deviation 57.5 fL (35.1-46.3); Red Blood Cell Count 4.74 M/mm3 (3.80-5.20); White Blood Cell Count 9.65 K/mm3 (4.00-11.30)
[2023-08-31 15:36] LABS: BASOPHILS PERCENT MAN 0 % (0-2); EOSINOPHILS ABSOLUTE MAN 1.64 K/mm3 (0.00-0.68); EOSINOPHILS PERCENT MAN 17 % (0-6); LYMPHOCYTES % ATYPICAL MANUAL 2 % (0-0); LYMPHOCYTES ABSOLUTE MAN 1.15 K/mm3 (0.84-5.20); LYMPHOCYTES PERCENT MAN 10 % (21-46); MONOCYTES ABSOLUTE MAN 1.06 K/mm3 (0.16-1.47); MONOCYTES PERCENT MAN 11 % (4-13); NEUTROPHILS ABSOLUTE MAN 5.79 K/mm3 (1.96-9.15); SEG NEUTROPHILS PERCENT MAN 60 % (41-73); TOTAL CELLS COUNTED 100
[2023-08-31 15:37] LABS: Albumin, Blood 3.7 g/dL (3.4-5.0); Albumin/Globulin Ratio 0.9 (0.8-1.8); Bilirubin, Total 0.4 mg/dL (0.1-1.0); Bun/Creatinine Ratio 28.6 (12.0-20.0); Creatinine, Blood 0.7 mg/dL (0.40-1.00); Potassium, Blood 3.6 mmol/L (3.5-5.5); Total Protein, Blood 7.7 g/dL (6.4-8.2)
[2023-08-31 17:06] LABS: Influenza A, PCR NEGATIVE (NEGATIVE); Influenza B, PCR NEGATIVE (NEGATIVE); Resp Syncytial Virus, PCR NEGATIVE (NEGATIVE); SARS-Cov-2 (COVID-19) PCR, MMC NEGATIVE (NEGATIVE)
[2023-08-31 20:00] VITALS: BP 156/109
[2023-08-31] MEDS ORDERED: PRED20 PO (20:23)
== END 2023-08-31 20:20 | disposition home or self-care (01) ==
LOC: ER 14:36
PROVIDERS: Emergency Medicine; Physician Assistant
DX: J96.01 Acute respiratory failure with hypoxia (principal); J44.1 Chronic obstructive pulmonary disease with (acute) exacerbation; D69.6 Thrombocytopenia, unspecified; I10 Essential (primary) hypertension; Z86.2 Personal history of diseases of the blood and blood-forming organs and certain disorders involving the immune mechanism; Z20.822 Contact with and (suspected) exposure to COVID-19; E03.9 Hypothyroidism, unspecified; Z79.51 Long term (current) use of inhaled steroids; Z79.899 Other long term (current) drug therapy; Z79.52 Long term (current) use of systemic steroids; Z79.2 Long term (current) use of antibiotics; Z88.8 Allergy status to other drugs, medicaments and biological substances; Z88.5 Allergy status to narcotic agent; Z88.6 Allergy status to analgesic agent; Z91.013 Allergy to seafood; Z91.018 Allergy to other foods; Z91.010 Allergy to peanuts; Z88.1 Allergy status to other antibiotic agents; Z99.89 Dependence on other enabling machines and devices
CPT/HCPCS: 0241U; 71046; 80053; 83880; 84484; 85025; 93005; 93010; 94644; 94664; 96374; 99285-25; A9270; J2930

== ENCOUNTER 2024-06-12 12:18 | Emergency (ER) | payer OTHER, MEDICARE ==
[~2024-06-12] VITALS: Ht 167.6 cm; Wt 108.9 kg
[~2024-06-12 12:18] MED LIST changes: +BREZTRI AEROS10.7 GM INH; +KLOR-CON 1010 ME9 PO
[2024-06-12] MEDS ORDERED: [UNRECOGNIZED DRUG - MIXTURE] IV ONE (13:20)
== END 2024-06-12 15:42 | disposition home or self-care (01) ==
LOC: ER 12:18
DX: S40.012A Contusion of left shoulder, initial encounter (principal); S40.021A Contusion of right upper arm, initial encounter; D66 Hereditary factor VIII deficiency; E03.9 Hypothyroidism, unspecified; I10 Essential (primary) hypertension; J44.9 Chronic obstructive pulmonary disease, unspecified; W01.0XXA Fall on same level from slipping, tripping and stumbling without subsequent striking against object, initial encounter; Z79.899 Other long term (current) drug therapy; Z88.5 Allergy status to narcotic agent; Z91.018 Allergy to other foods; Z88.6 Allergy status to analgesic agent; Z88.8 Allergy status to other drugs, medicaments and biological substances; Z91.010 Allergy to peanuts
CPT/HCPCS: 96374; 99281; J7187

== ENCOUNTER 2024-06-14 01:57 | Day surgery (SDC) | payer MEDICARE ==
[2024-06-14] MEDS ORDERED: [UNRECOGNIZED DRUG - MIXTURE] IV SCH (11:45)
[2024-06-14 13:45] VITALS: BP 119/68
== END 2024-06-14 14:45 | disposition home or self-care (01) ==
LOC: ATC 01:57
DX: D66 Hereditary factor VIII deficiency (principal); E03.9 Hypothyroidism, unspecified; I10 Essential (primary) hypertension; J44.9 Chronic obstructive pulmonary disease, unspecified
CPT/HCPCS: 96365; J7187

== ENCOUNTER 2024-06-15 13:19 | Day surgery (SDC) | payer MEDICARE ==
[~2024-06-15 13:19] MED LIST changes: +[UNRECOGNIZED DRUG - MIXTURE] IV SCH
--- NOTE | 2024-06-15 14:57 | NUR ---
MEDICATION STOP TIME WAS [id number]
== END 2024-06-15 14:52 | disposition home or self-care (01) ==
LOC: ATC 13:19
DX: D66 Hereditary factor VIII deficiency (principal); E03.9 Hypothyroidism, unspecified; I10 Essential (primary) hypertension; J44.9 Chronic obstructive pulmonary disease, unspecified; Z66 Do not resuscitate; Z88.8 Allergy status to other drugs, medicaments and biological substances; Z88.5 Allergy status to narcotic agent; Z91.018 Allergy to other foods; Z88.1 Allergy status to other antibiotic agents; Z91.010 Allergy to peanuts; Z91.013 Allergy to seafood; Z91.048 Other nonmedicinal substance allergy status; Z79.51 Long term (current) use of inhaled steroids; Z79.890 Hormone replacement therapy; Z79.899 Other long term (current) drug therapy
CPT/HCPCS: 96365; J7187

== ENCOUNTER 2024-06-16 03:47 | Day surgery (SDC) | payer MEDICARE ==
[~2024-06-16 03:47] MED LIST changes: -[UNRECOGNIZED DRUG - MIXTURE] IV SCH
[2024-06-16 15:30] VITALS: BP 161/89
[2024-06-16] MEDS ORDERED: [UNRECOGNIZED DRUG - MIXTURE] IV SCH (15:35)
== END 2024-06-16 16:12 | disposition home or self-care (01) ==
LOC: ATC 03:47
DX: D66 Hereditary factor VIII deficiency (principal); E03.9 Hypothyroidism, unspecified; I10 Essential (primary) hypertension; J44.9 Chronic obstructive pulmonary disease, unspecified; Z79.899 Other long term (current) drug therapy; Z88.8 Allergy status to other drugs, medicaments and biological substances; Z91.010 Allergy to peanuts; Z91.013 Allergy to seafood
CPT/HCPCS: 96365; J7187

== ENCOUNTER 2024-06-18 04:21 | Day surgery (SDC) | payer MEDICARE ==
[2024-06-18 15:24] VITALS: BP 135/77
== END 2024-06-18 15:31 | disposition home or self-care (01) ==
LOC: ATC 04:21
DX: D66 Hereditary factor VIII deficiency (principal); I10 Essential (primary) hypertension; E03.9 Hypothyroidism, unspecified; J44.9 Chronic obstructive pulmonary disease, unspecified; Z66 Do not resuscitate; Z88.5 Allergy status to narcotic agent; Z88.6 Allergy status to analgesic agent; Z88.8 Allergy status to other drugs, medicaments and biological substances; Z79.899 Other long term (current) drug therapy
CPT/HCPCS: 99211